=== PATIENT | male | born 1970 | race Caucasian/White ===

== ENCOUNTER 2023-05-04 11:13 | Emergency (ER) | payer OTHER ==
[2023-05-04] MEDS ORDERED: morphine CARPU-JECT 4 MG/1 ML DISP.SYRIN IVPUSH ONE (11:21)
[2023-05-04 11:31] VITALS: RESP 18; BMI 25.7
[2023-05-04] MEDS ORDERED: morphine SULFATE 4 MG/ML VIAL ONE (11:34)
[2023-05-04 12:12] LABS: HEMATOCRIT 42.5 % (35.4-49); HEMOGLOBIN 14.1 G/dL (11.7-16.9); MCH 30.8 pg (25.7-33.7); MCHC 33.2 g/dl (32.0-35.9); MEAN CELL VOLUME 92.7 fl (80-96); MEAN PLT VOLUME 8.5 fl (7.5-11.1); PLATELET COUNT 233.9 10^3/uL (134-434); RBC 4.58 10^6/uL (4.00-5.60); RDW 14.3 % (11.9-15.9); WHITE BLOOD COUNT 4.1 10^3/uL (4.0-10.8)
[2023-05-04 13:00] LABS: INR 1.01 (0.83-1.09); PROTHROMBIN TIME (PATIENT) 11.7 SEC (9.7-13.0)
[2023-05-04 14:04] LABS: PLATELET ESTIMATE ADEQUATE
[2023-05-04 14:14] LABS: POTASSIUM 4.1 mmol/L (3.5-5.1)
[2023-05-04 14:16] LABS: CALCIUM 8.8 mg/dL (8.5-10.1)
[2023-05-04 14:18] LABS: BLOOD UREA NITROGEN 16.9 mg/dL (7-18)
[2023-05-04 14:21] LABS: CREATININE 0.9 mg/dL (0.55-1.3)
[2023-05-04 14:22] LABS: BILIRUBIN,TOTAL 0.6 mg/dL (0.2-1); TOT PROT 7.2 g/dl (6.4-8.2)
[2023-05-04] MEDS ORDERED: LIDOCAINE 1%/EPI 1:100000 (20 ML MULTI DOSE VIAL) IJ ONE (14:40)
[2023-05-04] MEDS ORDERED: SODIUM CHLORIDE 1,000 ML IV ONE (14:40)
[2023-05-04] MEDS ORDERED: ONDANSETRON 4 MG/2 ML VIAL IVPB ONE (14:40)
[2023-05-04] MEDS ORDERED: LIDO 2%/EPI 1:200000 PRESRVFRE (20 ML SDVIAL) ONE (14:43)
[2023-05-04] MEDS ORDERED: ONDANSETRON 4 MG/2 ML VIAL ONE (14:51)
[2023-05-04 15:02] VITALS: TEMP 98.3
[2023-05-04 15:51] VITALS: BP 130/80; PULSE 82
== END 2023-05-04 16:19 | disposition home or self-care (01) ==
LOC: FER 11:13
PROC: 0HQ0XZZ Repair Scalp Skin, External Approach (ICD-10-PCS; principal; 2023-05-04)
PROC: 3E033GC Introduction of Other Therapeutic Substance into Peripheral Vein, Percutaneous Approach (ICD-10-PCS; 2023-05-04)
PROC: 3E033GC Introduction of Other Therapeutic Substance into Peripheral Vein, Percutaneous Approach (ICD-10-PCS; 2023-05-04)
PROC: 3E0337Z Introduction of Electrolytic and Water Balance Substance into Peripheral Vein, Percutaneous Approach (ICD-10-PCS; 2023-05-04)
DX: S42.302A Unspecified fracture of shaft of humerus, left arm, initial encounter for closed fracture (principal); M79.602 Pain in left arm; R20.2 Paresthesia of skin; R51.9 Headache, unspecified; S01.01XA Laceration without foreign body of scalp, initial encounter; X50.0XXA Overexertion from strenuous movement or load, initial encounter; W17.89XA Other fall from one level to another, initial encounter
CPT/HCPCS: 36415; 70450-TC; 72125-TC; 73060-TC-LT-FY; 80053; 85027; 85610; 86850; 86900; 86901